=== PATIENT | female | born 1945 | race Caucasian/White ===

== ENCOUNTER → 2020-02-23 09:21 | Outpatient (CLI) | payer MEDICARE, OTHER | END | disposition home or self-care (01) | LOC: D.CT 09:21 | PROVIDERS: ATTEND Family Medicine | DX: R10.11 Right upper quadrant pain (principal) ==

== ENCOUNTER → 2020-03-03 07:58 | Outpatient (CLI) | payer MEDICARE, OTHER | END | disposition home or self-care (01) | LOC: D.NM 07:58 | PROVIDERS: ATTEND Family Medicine | DX: R93.89 Abnormal findings on diagnostic imaging of other specified body structures (principal) ==

== ENCOUNTER → 2020-04-13 12:50 | Outpatient (CLI) | payer MEDICARE, OTHER | END | disposition home or self-care (01) | LOC: D.NM 12:50 | PROVIDERS: ATTEND Internal Medicine Gastroenterology | DX: R10.84 Generalized abdominal pain (principal); R14.0 Abdominal distension (gaseous); R63.8 Other symptoms and signs concerning food and fluid intake ==